=== PATIENT | male | born 1960 | race Caucasian/White ===

== ENCOUNTER 2019-09-18 09:28 | Outpatient (CLI) | payer OTHER, SELFPAY ==
[2019-09-18 09:51] LABS: Basophils Absolute Auto 0.1 K/mm3 (0.0-0.1); Basophils Percent Auto 0.7 % (0.2-1.2); Eosinophils Absolute Auto 0.1 K/mm3 (0-0.3); Eosinophils Percent Auto 1.7 % (0-4.4); Hematocrit 44.5 % (42.0-52.0); Immature Granulocyte Absolute 0.03 K/mm3 (0.00-0.031); Immature Granulocyte Percent A 0.4 % (0-0.5); Lymphocytes Absolute Auto 1.91 K/mm3 (0.9-3.2); Lymphocytes Percent Auto 27.4 % (18.3-44.2); Mean Corpuscular HGB Conc 33.7 g/dl (32-36); Mean Corpuscular Hemoglobin 31.7 pg (26-34); Mean Corpuscular Volume 94.1 fl (80-100); Mean Platelet Volume 8.8 fl (7.4-10.4); Monocytes Absolute Auto 0.5 K/mm3 (0.1-0.6); Monocytes Percent Auto 7.6 % (2.6-8.5); Neutrophils Absolute Auto 4.3 K/mm3 (1.3-6.7); Neutrophils Percent Auto 62.2 % (45.5-73.1); Platelet Count Result 254 k/mm3 (150-375); Red Blood Count 4.73 M/mm3 (4.6-6.20); Red Cell Distribution Width 13.5 % (11.5-14.5)
[2019-09-18 10:02] LABS: Hemoglobin A1C 5.7 % (<5.7)
[2019-09-18 10:09] LABS: Alanine Aminotransferase 16 U/L (4-50); Albumin Level 4.5 g/dL (3.5-5.1); Alkaline Phosphatase 94 U/L (38-126); Anion Gap 11.3 mmol/L (7-16); Aspartate Amino Transferase 30 U/L (17-59); Bilirubin,Total 0.6 mg/dL (0.2-1.3); Blood Urea Nitrogen 22 mg/dL (9-20); Calcium 9.3 mg/dL (8.4-10.2); Carbon Dioxide 30 mmol/L (22-30); Chloride 100 mmol/L (98-107); Cholesterol 194 mg/dL (0-200); Estimated Glomerular Filt Rate > 60; Glucose 113 mg/dL (75-110); HDL Direct 41 mg/dL; Potassium 4.3 mmol/L (3.4-5.0); Sodium 137 mmol/L (137-145); Triglycerides 193 mg/dL (<150)
[2019-09-18 10:18] LABS: Creatinine Urine 231.2 mg/dL
[2019-09-18 10:20] LABS: LDL Cholesterol Direct 108 mg/dL
[2019-09-18 10:23] LABS: MALB Creatinine Ratio 6.4 mg/g (0-30); Microalbumin Urine Random 14.8 mg/L (0-16.7)
== END 2019-09-18 09:29 | disposition home or self-care (01) ==
LOC: ANHLAB 09:30
PROVIDERS: PCP Internal Medicine; Visit Provider Internal Medicine
DX: I10 Essential (primary) hypertension (principal); E78.5 Hyperlipidemia, unspecified; R73.01 Impaired fasting glucose
CPT/HCPCS: 36415; 80053; 80061; 82043; 83036; 85025

== ENCOUNTER 2019-09-29 11:00 | Outpatient (CLI) | payer OTHER, SELFPAY ==
--- NOTE | ~2019-09-29 | XR_ITS ---
EXAMINATION: XR knee RT 3V DATE: 09/29/2019 11:30 INDICATION: Right knee primary osteoarthritis. TECHNIQUE: 3 views of right knee were obtained. COMPARISON: None. FINDINGS: There is varus angulation at the knee. No fracture. There is moderate osteoarthritis of med ial and patellofemoral compartments and mild osteoarthritis of lateral compartment. No knee joint eff usion. IMPRESSION: 1. Moderate right knee osteoarthritis. Reviewed, dictated and finalized at location B.
--- NOTE | ~2019-09-29 | XR_ITS ---
EXAMINATION: XR knee LT 3V DATE: 09/29/2019 11:30 INDICATION: Left knee primary osteoarthritis. TECHNIQUE: 3 views of left knee were obtained. COMPARISON: None. FINDINGS: There is varus angulation at the knee. No fracture. There is moderate osteoarthritis of med ial compartment, severe osteoarthritis of patellofemoral compartment, and mild osteoarthritis of late ral compartment. No knee joint effusion. IMPRESSION: 1. Severe left knee osteoarthritis. Reviewed, dictated and finalized at location B.
--- NOTE | ~2019-09-29 | XR_ITS ---
EXAMINATION: XR hip LT min 2V DATE: 09/29/2019 11:30 INDICATION: Left hip pain. TECHNIQUE: 3 views of left hip were obtained. COMPARISON: None. FINDINGS: Bone alignment is normal. No fracture. There is moderate left hip osteoarthritis. IMPRESSION: 1. Moderate left hip osteoarthritis. Reviewed, dictated and finalized at location B.
== END 2019-09-29 11:01 | disposition home or self-care (01) ==
PROVIDERS: PCP Internal Medicine; Visit Provider Internal Medicine
DX: M17.0 Bilateral primary osteoarthritis of knee (principal); M16.12 Unilateral primary osteoarthritis, left hip
CPT/HCPCS: 73502; 73562

== ENCOUNTER 2020-04-28 17:28 | Outpatient (CLI) | payer OTHER, SELFPAY | END 2020-04-28 17:29 | disposition home or self-care (01) | LOC: ANHCOVIDVC 17:28 | PROVIDERS: PCP Internal Medicine | DX: Z23 Encounter for immunization (principal) | CPT/HCPCS: 0001A; 91300 ==

== ENCOUNTER 2020-05-19 17:40 | Outpatient (CLI) | payer OTHER, SELFPAY | END 2020-05-19 17:41 | disposition home or self-care (01) | LOC: ANHCOVIDVC 17:40 | PROVIDERS: PCP Internal Medicine | DX: Z23 Encounter for immunization (principal) | CPT/HCPCS: 0002A; 91300 ==

== ENCOUNTER 2020-06-25 10:14 | Outpatient (CLI) | payer OTHER, SELFPAY ==
[2020-06-25 11:18] LABS: Anion Gap 2 mmol/L (8-16); Blood Urea Nitrogen 17 mg/dL (9-20); Calcium 9.2 mg/dL (8.4-10.2); Carbon Dioxide 35 mmol/L (22-30); Chloride 104 mmol/L (98-107); Estimated Glomerular Filt Rate > 60; Glucose 92 mg/dL (75-110); Hemoglobin A1C 5.7 % (<5.7); Sodium 141 mmol/L (137-145)
[2020-06-25 11:34] LABS: Creatinine Urine 198.4 mg/dL
[2020-06-25 11:38] LABS: MALB Creatinine Ratio 5.5 mg/g (0-30); Microalbumin Urine Random 10.9 mg/L (0-16.7)
== END 2020-06-25 10:15 | disposition home or self-care (01) ==
PROVIDERS: PCP Internal Medicine; Visit Provider Internal Medicine
DX: R73.01 Impaired fasting glucose (principal)
CPT/HCPCS: 36415; 80048; 82043; 83036

== ENCOUNTER 2020-08-30 07:49 | Outpatient (CLI) | payer OTHER, SELFPAY ==
[2020-08-30 08:14] LABS: Basophils Percent Auto 0.7 % (0.2-1.2); Eosinophils Absolute Auto 0.1 K/mm3 (0-0.3); Eosinophils Percent Auto 1.8 % (0-4.4); Hematocrit 39.7 % (42.0-52.0); Immature Granulocyte Absolute 0.01 K/mm3 (0.00-0.031); Immature Granulocyte Percent A 0.2 % (0-0.5); Lymphocytes Absolute Auto 1.67 K/mm3 (0.9-3.2); Lymphocytes Percent Auto 29.3 % (18.3-44.2); Mean Corpuscular HGB Conc 32.7 g/dl (32-36); Mean Corpuscular Hemoglobin 31.7 pg (26-34); Mean Corpuscular Volume 96.8 fl (80-100); Mean Platelet Volume 8.7 fl (7.4-10.4); Monocytes Absolute Auto 0.6 K/mm3 (0.1-0.6); Monocytes Percent Auto 9.8 % (2.6-8.5); Neutrophils Absolute Auto 3.3 K/mm3 (1.3-6.7); Neutrophils Percent Auto 58.2 % (45.5-73.1); Platelet Count Result 204 k/mm3 (150-375); Red Cell Distribution Width 13.8 % (11.5-14.5); White Blood Count 5.7 K/mm3 (4.5-10.0)
[2020-08-30 08:23] LABS: Cholesterol 158 mg/dL (0-200); HDL Direct 46 mg/dL; Triglycerides 132 mg/dL (<150)
[2020-08-30 08:34] LABS: LDL Cholesterol Direct 73 mg/dL
[2020-08-30 08:54] LABS: Prostate Specific Antigen 0.9 ng/mL (< OR = 4.0)
[2020-08-30 09:50] LABS: Vitamin D 25 Hydroxy 45.8 ng/mL
== END 2020-08-30 07:50 | disposition home or self-care (01) ==
LOC: ANHLAB 07:53
PROVIDERS: PCP Internal Medicine; Visit Provider Internal Medicine
DX: E78.2 Mixed hyperlipidemia (principal); I10 Essential (primary) hypertension; E55.9 Vitamin D deficiency, unspecified; Z12.5 Encounter for screening for malignant neoplasm of prostate
CPT/HCPCS: 36415; 80061; 82306; 84153; 84443; 85025; G0103

== ENCOUNTER 2021-02-02 02:11 | Day surgery (SDC) | payer OTHER, SELFPAY ==
[2021-01-25 15:09] VITALS: BMI 28.9
[2021-02-02 10:00] VITALS: BP 155/80; PULSE 70; RESP 20; TEMP 36.2; O2SAT 98
--- NOTE | 2021-02-02 10:04 | WPDANESEPPF ---
Anes - Initial Pre Proc Eval Procedure: Operation Date: 02/02/21 11:00 Proposed Procedures p Screening Colonoscopy - Giovanni Gillette MD Date/Time: 02/02/21 10:04 Surgeon: Giovanni Gillette MD Pre Op Diagnosis: neoplasm screening Patient Data Age: 60 Gender: M Height: 1.91 m Weight: 105.2 kg Last Vital Signs Temp 36.2 C L 02/02/21 10:00 Pulse 70 02/02/21 10:00 Resp 20 02/02/21 10:00 BP 155/80 H 02/02/21 10:00 Pulse Ox 98 02/02/21 10:00 Allergies Allergy/AdvReac Type Severity Reaction Status Date / Time No Known Allergies Allergy Unknown Verified 02/02/21 09:57 Home Medications Medication Instructions Recorded Confirmed Type coenzyme Q10 100 mg capsule 100 mg PO DAILY 01/26/19 01/25/21 History multivitamin 1 tablet PO DAILY 01/26/19 01/25/21 History hydrochlorothiazide 12.5 mg tablet 12.5 mg PO DAILY #90 tablet 08/29/20 01/25/21 Rx atorvastatin 40 mg PO DAILY 01/25/21 01/25/21 History cetirizine [Zyrtec] 5 mg PO DAILY PRN 01/25/21 01/25/21 History losartan 100 mg PO DAILY 01/25/21 01/25/21 History Patient hx anesthesia problems: none Family hx anesthesia problems: none Results Review: All pre-operative results and documents have been reviewed as part of the pre-operative evaluation. [facility]LY [facility] Past Medical History Medical History (Updated 01/10/21 @ 16:46 by Ranulfo Samaniego MD) Alcohol use Benign essential hypertension Encounter for screening colonoscopy Hyperlipidemia Hypertension IFG (impaired fasting glucose) Osteoarthritis of left knee Primary osteoarthritis of left hip Primary osteoarthritis, unspecified site Varicose veins of both lower extremities Surgical History Surgical History History of vascular surgery Vein Surgery for Circulation Issues - Urbano Legs Family History Family History Mother Hypertension Family history of diabetes mellitus in first degree relative Sibling Family history of malignant neoplasm of breast in first degree relative Family history of malignant neoplasm Father Hypertension Social History Social History Smoking status: Never smoker Alcohol intake: current Drinks per week: 12 Living arrangements: with family Spiritual care concerns: No Anes - Eval Final PreProcedure Day of Procedure 02/02/21 10:04 Patient weight: overweight Heart: regular rate and rhythm Lungs: clear to auscultation and normal air movement Airway: Mallampati scale class III Neurological: alert and oriented Last oral intake: >/= 8 hours ASA classification: III Emergent: no Anesthetic plan: proceed Anesthesia type and monitoring: general GIVS and standard monitoring Results Review: All pre-operative results and documents have been reviewed as part of the pre-operative evaluation. Informed Consent: The patient's anesthetic plan and its attendant risks and benefits were discussed with the patient/family/POA. Questions were solicited and answers provided to the satisfaction of the patient/family/POA.
[2021-02-02] MEDS: LACTATED RINGERS 1,000 ML 150 ML IV CONT (10:08)
--- NOTE | 2021-02-02 10:49 | PM.HPGS ---
History of Present Illness History of Present Illness Consent: Risks, benefits, and alternatives have been discussed and questions answered. Patient agrees to proceed with procedure. Chief complaint: neoplasm screening Narrative: Hansel Wright is a 60 year old male Referred for colon cancer screening. He had a polyp removed 6 years ago Review of Systems Review of Systems: All systems reviewed & are unremarkable except as noted in HPI and below PMFSH Past Medical History Medical History Alcohol use Benign essential hypertension Encounter for screening colonoscopy Hyperlipidemia Hypertension IFG (impaired fasting glucose) Osteoarthritis of left knee Primary osteoarthritis of left hip Primary osteoarthritis, unspecified site Varicose veins of both lower extremities Surgical History Surgical History History of vascular surgery Vein Surgery for Circulation Issues - Urbano Legs Family History Family History Mother Hypertension Family history of diabetes mellitus in first degree relative Sibling Family history of malignant neoplasm of breast in first degree relative Family history of malignant neoplasm Father Hypertension Social History Social History Smoking status: Never smoker Alcohol intake: current Drinks per week: 12 Living arrangements: with family Spiritual care concerns: No Meds Home Medications and Allergies Home Medications Medication Instructions Recorded Confirmed Type coenzyme Q10 100 mg capsule 100 mg PO DAILY 01/26/19 01/25/21 History multivitamin 1 tablet PO DAILY 01/26/19 01/25/21 History hydrochlorothiazide 12.5 mg tablet 12.5 mg PO DAILY #90 tablet 08/29/20 01/25/21 Rx atorvastatin 40 mg PO DAILY 01/25/21 01/25/21 History cetirizine [Zyrtec] 5 mg PO DAILY PRN 01/25/21 01/25/21 History losartan 100 mg PO DAILY 01/25/21 01/25/21 History Allergies Allergy/AdvReac Type Severity Reaction Status Date / Time No Known Allergies Allergy Unknown Verified 02/02/21 09:57 Vital Signs Vital Signs - 24 hr 02/02/21 10:00 Temperature 36.2 C L Pulse Rate 70 Respiratory Rate 20 Blood Pressure 155/80 H Pulse Oximetry 98 Exam Const: General: alert Orientation/consciousness: patient oriented x3 Resp: Auscultation: clear to auscultation bilaterally Cardio: Rhythm: regular rhythm GI: GI Palp: Yes Soft to palpation and No Tenderness to palpation present (GI) Neuro: General: patient oriented x3 Assessment and Plan Assessment and plan (1) Colon cancer screening: Code(s): Z12.11 - Encounter for screening for malignant neoplasm of colon Status: Acute Assessment and Plan: Colonoscopy with possible biopsy or polypectomy or cautery or injection of substances.
[2021-02-02] MEDS: SIMETHICONE ORAL SUSPENSION 20 MG/0.3 ML 30 ML BOTTLE 0.6 ML IRRIGATION (11:10)
[2021-02-02 11:21] VITALS: BP 115/74; PULSE 73; RESP 20; O2SAT 97
[2021-02-02 11:31] VITALS: BP 128/69; PULSE 66; RESP 20; O2SAT 99
[2021-02-02 11:39] VITALS: BP 134/70; PULSE 65; RESP 20; O2SAT 98
== END 2021-02-02 11:52 | disposition home or self-care (01) ==
PROVIDERS: PCP Internal Medicine; Visit Provider Internal Medicine Gastroenterology
PROC: 0DJD8ZZ Inspection of Lower Intestinal Tract, Via Natural or Artificial Opening Endoscopic (ICD-10-PCS; CPT 45378; principal; 2021-02-02 11:00)
DX: Z12.11 Encounter for screening for malignant neoplasm of colon (principal); D12.0 Benign neoplasm of cecum; I10 Essential (primary) hypertension; E78.5 Hyperlipidemia, unspecified; M19.90 Unspecified osteoarthritis, unspecified site
CPT/HCPCS: 45380; 88305; J2001; J2704; J7120

== ENCOUNTER 2021-10-09 16:07 | Outpatient (CLI) | payer BC, SELFPAY ==
--- NOTE | ~2021-10-09 | CT_ITS ---
EXAMINATION: CT LE LT wo con DATE: 10/09/2021 16:33 INDICATION: Unilateral primary osteoarthritis of the left knee. Preoperative planning. TECHNIQUE: High resolution computed tomography (CT) of the left lower limb from the hip through the a nkle was performed without intravenous contrast. Portion of the right lower limb or also visualized. Additional sagittal and coronal reconstructions were performed. Automated exposure control and iterat hema reconstruction technique were employed. The dose-length product was 1920.52 mGy-cm. COMPARISON: None FINDINGS: Bone alignment is normal. No fracture. Polyarticular osteoarthritis in the bilateral lower limbs. Thi s is severe at the medial compartment of the left knee and moderate to severe at the medial compartme nt of the right knee. Mild to moderate osteoarthritis at the patellofemoral compartments of both knee s and at the bilateral hips, moderate severity at the bilateral sacroiliac joints and mild at the malia ateral ankle and subtalar joints. Small bilateral knee joint effusions. No effusions at the left hip were bilateral ankles. Soft tissues including the visualized portion of the pelvis are otherwise unre markable. No pathologically enlarged left inguinal or pelvic lymphadenopathy. IMPRESSION: 1. Medial compartment predominant tricompartmental osteoarthritis at the bilateral knees, severe on t he left and moderate to severe on the right. Reviewed, dictated and finalized at location A. IMPRESSION: 1. Medial compartment predominant tricompartmental osteoarthritis at the bilate ral knees, severe on the left and moderate to severe on the right.
== END 2021-10-09 16:08 | disposition home or self-care (01) ==
LOC: ANHIMG 16:11
PROVIDERS: PCP Internal Medicine; Visit Provider Orthopaedic Surgery
DX: M17.12 Unilateral primary osteoarthritis, left knee (principal)
CPT/HCPCS: 73700

== ENCOUNTER 2021-10-20 08:19 | Outpatient (CLI) | payer BC, SELFPAY ==
[2021-10-20 09:18] LABS: Basophils Percent Auto 0.8 % (0.2-1.2); Eosinophils Absolute Auto 0.1 K/mm3 (0-0.3); Eosinophils Percent Auto 1.3 % (0-4.4); Hematocrit 41.8 % (42.0-52.0); Hemoglobin 13.8 g/dL (14.0-18.0); Immature Granulocyte Absolute 0.01 K/mm3 (0.00-0.031); Immature Granulocyte Percent A 0.2 % (0-0.5); Lymphocytes Absolute Auto 1.34 K/mm3 (0.9-3.2); Lymphocytes Percent Auto 25.6 % (18.3-44.2); Mean Corpuscular Hemoglobin 32.1 pg (26-34); Mean Corpuscular Volume 97.2 fl (80-100); Mean Platelet Volume 8.9 fl (7.4-10.4); Monocytes Absolute Auto 0.4 K/mm3 (0.1-0.6); Monocytes Percent Auto 8.2 % (2.6-8.5); Neutrophils Absolute Auto 3.4 K/mm3 (1.3-6.7); Neutrophils Percent Auto 63.9 % (45.5-73.1); Platelet Count Result 245 k/mm3 (150-375); Red Cell Distribution Width 13.6 % (11.5-14.5); White Blood Count 5.2 K/mm3 (4.5-10.0)
[2021-10-20 09:23] LABS: Albumin Level 4.4 g/dL (3.5-5.1)
[2021-10-20 09:28] LABS: Urine Cotinine NEGATIVE
[2021-10-20 09:28] LABS: Alanine Aminotransferase 15 U/L (6-50); Albumin Level 4.5 g/dL (3.5-5.1); Alkaline Phosphatase 86 U/L (38-126); Anion Gap 9 mmol/L (8-16); Aspartate Amino Transferase 30 U/L (17-59); Bilirubin,Total 0.6 mg/dL (0.2-1.3); Blood Urea Nitrogen 16 mg/dL (9-20); Calcium 8.7 mg/dL (8.4-10.2); Carbon Dioxide 32 mmol/L (22-30); Chloride 102 mmol/L (98-107); Cholesterol 158 mg/dL (0-200); Estimated Glomerular Filt Rate > 60; Glucose 111 mg/dL (65-110); HDL Direct 46 mg/dL; Hemoglobin A1C 5.5 % (<5.7); Potassium 4.1 mmol/L (3.4-5.0); Sodium 143 mmol/L (137-145); Triglycerides 62 mg/dL (<150)
[2021-10-20 09:39] LABS: LDL Cholesterol Direct 80 mg/dL
[2021-10-20 09:55] LABS: Vitamin D 25 Hydroxy 40.9 ng/mL
[2021-10-20 13:55] LABS: Prostate Specific Antigen 0.9 ng/mL (< OR = 4.0)
== END 2021-10-20 08:20 | disposition home or self-care (01) ==
LOC: ANHLAB 08:21
PROVIDERS: PCP Internal Medicine; Visit Provider Internal Medicine
DX: Z12.5 Encounter for screening for malignant neoplasm of prostate (principal); M16.12 Unilateral primary osteoarthritis, left hip; I10 Essential (primary) hypertension; E78.2 Mixed hyperlipidemia; E55.9 Vitamin D deficiency, unspecified
CPT/HCPCS: 36415; 80053; 80061; 80307; 82040; 82306; 83036; 84153; 84443; 85025; G0103

== ENCOUNTER 2021-10-20 08:21 | Outpatient (CLI) | payer BC, SELFPAY ==
--- NOTE | 2021-10-20 | ECG_ITS ---
Measurements Intervals [place] Rate: 68 P: 35 [place]: 171 QRS: 36 QRSD: 110 T: 37 QT: 419 QTc: 446 Interpretive Statements SINUS RHYTHM INCOMPLETE RIGHT BUNDLE BRANCH BLOCK MINIMAL Q WAVES- INFERIOR LEADS BASELINE ARTIFACT- I, II, AVR, AVL, AVF, V1 BORDERLINE ECG NO PREVIOUS ECG AVAILABLE FOR COMPARISON Electronically Signed On 10-20-2021 9:37:39 CDT by Hair Buckley D.O.
== END 2021-10-20 08:22 | disposition home or self-care (01) ==
LOC: ANHLAB 08:23
PROVIDERS: PCP Internal Medicine; Visit Provider Orthopaedic Surgery
DX: Z01.818 Encounter for other preprocedural examination (principal); M17.12 Unilateral primary osteoarthritis, left knee; E78.9 Disorder of lipoprotein metabolism, unspecified; I10 Essential (primary) hypertension
CPT/HCPCS: 93005

== ENCOUNTER 2021-11-17 11:43 | Outpatient (CLI) | payer BC, SELFPAY | END 2021-11-17 11:44 | disposition home or self-care (01) | LOC: ANHSURGERY 11:51 | PROVIDERS: PCP Internal Medicine; Visit Provider Orthopaedic Surgery | DX: Z01.818 Encounter for other preprocedural examination (principal); M17.12 Unilateral primary osteoarthritis, left knee | CPT/HCPCS: 87081 ==

== ENCOUNTER 2021-12-11 01:03 | Day surgery (SDC) | payer BC, SELFPAY ==
[2021-11-17 12:05] VITALS: BP 150/84; PULSE 70; RESP 16; TEMP 37; O2SAT 99; BMI 29.9
--- NOTE | 2021-11-17 12:18 | PC.NURSE ---
Report to the Outpatient Waiting Room, entrance under the green pavilion located off [facility], at time __10:00AM on date ___12/11/21____. OR Time: __12:00PM . Time changes happen often and if your time is changed the preop area will call you the afternoon before. - You and your visitor will be asked to self-screen and do not enter if you have any COVID symptoms. - Only one visitor and NO children visitors are allowed at this time. - The patient visitor is requested to leave or wait in car when not with patient due to restrictions. - A mask is required within the hospital. Patients may have clear liquids (water, carbonated beverages, clear teas, apple juice) until 3 hours prior to surgery with a maximum of 20 ounces. - No food from midnight until time of surgey Take the following medications with a SIP of water the morning of surgery: __AMLODIPINE Medications to discontinue per physician ____HOLD ALL VITAMINS/SUPPLEMENTS, ASPIRIN & NSAIDS(IBUPROFEN) X [address] SMALL Date to take last dose___12/04/21 Please no make-up, nail kinyarwanda, hairspray, perfume, deodorant, or body powder the day of surgery. No jewelry (including any body piercings) or valuables the day of surgery, leave them at home. Please take a shower or bath the night before, or the morning of, surgery with an antibacterial soap. Wear comfortable, loose fitting clothing. Children are encouraged to wear pajamas. - Jewelry must be removed prior to entering the operating room. Rings and piercings that are not removed may be cut off. - The hospital will not accept responsibility for valuables. - Please leave all valuables, including medications, at home the day of surgery. If you are going home after surgery, a licensed party bus driver must drive you home. - NO public transportation without another adult. - We recommend that an adult stay with you for 24 hours following discharge. - We also recommend that you do not drive, make important decision, drink alcoholic beverages, or take any drugs that were not prescribed by your health care provider for at least 24 hours after your discharge time. Follow any additional instructions given to you from your surgeon. If you or anyone in your household have experienced Covid symptoms in the past week, please notify your surgeon or the nurse liaison at the phone number below for possible testing. Telephone instructions given to ___patient and asked if any additional questions and then verbalized understanding. Patient advised to call surgeon office or pre surgery nurse liaison [phone] if any additional questions.
--- NOTE | 2021-12-11 09:36 | WPDANESEPPF ---
Anes - Initial Pre Proc Eval Procedure: Operation Date: 12/11/21 12:00 Proposed Procedures p Left Custom Total Knee Arthroplasty - Ranulfo Samaniego MD Date/Time: 12/11/21 09:36 Surgeon: Ranulfo Samaniego MD Pre Op Diagnosis: primary oa left knee Patient Data Age: 61 Gender: M Height: 1.91 m Weight: 108.8 kg Last Vital Signs Temp 37.0 C 11/17/21 12:05 Pulse 70 11/17/21 12:05 Resp 16 11/17/21 12:05 BP 150/84 H 11/17/21 12:05 Pulse Ox 99 11/17/21 12:05 O2 Del Method Room Air 11/17/21 12:05 Allergies Allergy/AdvReac Type Severity Reaction Status Date / Time No Known Allergies Allergy Unknown Verified 12/11/21 10:48 Home Medications Medication Instructions Recorded Confirmed Type coenzyme Q10 100 mg capsule (Co 100 mg PO DAILY 01/26/19 12/11/21 History Q-10) multivitamin 1 tablet PO DAILY 01/26/19 12/11/21 History atorvastatin 40 mg tablet 40 mg PO DAILY #90 tabs 08/18/21 12/11/21 Rx hydrochlorothiazide 12.5 mg tablet 12.5 mg PO DAILY #90 tabs 08/18/21 12/11/21 Rx amlodipine 2.5 mg tablet 2.5 mg PO DAILY #30 tabs 10/10/21 12/11/21 Rx losartan 100 mg tablet 100 mg PO DAILY #90 tabs 10/10/21 12/11/21 Rx aspirin 81 mg chewable tablet 81 mg PO DAILY 11/17/21 12/11/21 History cetirizine 10 mg tablet (Zyrtec) 10 mg PO DAILY 11/17/21 12/11/21 History glucosamine sulf dipot 2 cap PO DAILY 11/17/21 12/11/21 History chlr,msm,chond 550 mg-C 30 mg-rigoberto 1 mg capsule (Glucosamine Chondroitin) ibuprofen 200 mg tablet 400 mg PO Q6H PRN Pain 11/17/21 12/11/21 History Patient hx anesthesia problems: none Family hx anesthesia problems: none Results Review: All pre-operative results and documents have been reviewed as part of the pre-operative evaluation. [facility] Past Medical History Medical History Alcohol use Benign essential hypertension Encounter for screening colonoscopy ETOH abuse Hyperlipidemia Hypertension IFG (impaired fasting glucose) Osteoarthritis of left knee Primary osteoarthritis of left hip Primary osteoarthritis, unspecified site Varicose veins of both lower extremities Surgical History Surgical History History of vascular surgery Vein Surgery for Circulation Issues - Urbano Legs Family History Family History Mother Hypertension Family history of diabetes mellitus in first degree relative Sibling Family history of malignant neoplasm of breast in first degree relative Family history of malignant neoplasm Father Hypertension Social History Social History Smoking packs per day: 1 Smoking cigarettes per day: 20.0 Years smoked: 20 Smoking pack-years: 20.00 Smoking status: Former smoker Tobacco type: cigarettes Smoking end date: 08/19/99 Alcohol intake: current Drinks per week: 15 Substance use: never Living arrangements: with family Additional living arrangements comments: Spiritual care concerns: No Anes - Eval Final PreProcedure Day of Procedure 12/11/21 09:36 Patient weight: overweight Heart: regular rate and rhythm Lungs: clear to auscultation and normal air movement Airway: Mallampati scale class III Neurological: alert and oriented Last oral intake: >/= 8 hours ASA classification: III Emergent: no Anesthetic plan: proceed Anesthesia type and monitoring: general LMA and standard monitoring Results Review: All pre-operative results and documents have been reviewed as part of the pre-operative evaluation. Informed Consent: The patient's anesthetic plan and its attendant risks and benefits were discussed with the patient/family/POA. Questions were solicited and answers provided to the satisfaction of the patient/family/POA.
[2021-12-11 10:32] VITALS: BP 148/71; PULSE 78; RESP 18; TEMP 36.5; O2SAT 95
--- NOTE | 2021-12-11 10:56 | WPDANESPNB ---
Anes - Peripheral Nerve Block Date/Time: 12/11/21 10:56 I have discussed with the patient/family/POA the placement of a peripheral nerve block for post-operative pain management, including associated risks, benefits, complications, and side effects. Alternative methods of post-operative analgesia were detailed. Questions were solicited and answers provided to the satisfaction of the patient/family/POA. Time-Out: A pre-procedural Time-Out was completed immediately before starting the procedure and confirmed: Patient Identification, Site, Procedure, Patient Position and the Availability of Requisite Equipment. Clinical Indications: Acute post-operative pain management requested by the operative surgeon. Nerve Block Insertion Note Needle: 22 gauge, stimulating, insulated echogenic needle.
[2021-12-11] MEDS: LACTATED RINGERS 1,000 ML 30 ML IV CONT (10:59)
[2021-12-11] MEDS: TRANEXAMIC ACID 1,000MG/ISO100 1,000 MG/100 ML BAG 200 MG IVPB (11:03)
[2021-12-11] MEDS: ACETAMINOPHEN 500 MG TABLET 1000 MG PO (11:04)
--- NOTE | 2021-12-11 11:40 | WPDHPUPDATE1 ---
History and Physical Update Update Date/Time: 12/11/21 11:40 Right great toe fungal infection with large black callus and mild erythema. Additional small superficial ulcer on the lateral aspect of the IP joint. Patient will need to have the toe condition addressed prior to TKA. Discharge to home.
== END 2021-12-11 11:45 | disposition home or self-care (01) ==
PROVIDERS: PCP Internal Medicine; Visit Provider Orthopaedic Surgery
PROC: (CPT 27447; principal; 2021-12-11 12:00)
DX: M17.12 Unilateral primary osteoarthritis, left knee (principal); L97.519 Non-pressure chronic ulcer of other part of right foot with unspecified severity; B35.1 Tinea unguium; Z53.09 Procedure and treatment not carried out because of other contraindication
CPT/HCPCS: 36415; 86850; 86900; 86901; 87081; 99212; A9270; G0463; J0171; J1885; J2250; J2270; J2795; J3010; J7120

== ENCOUNTER 2021-12-29 09:18 | Outpatient (CLI) | payer BC, SELFPAY ==
[2021-12-29 10:15] LABS: Anion Gap 8 mmol/L (8-16); Blood Urea Nitrogen 18 mg/dL (9-20); Carbon Dioxide 28 mmol/L (22-30); Chloride 103 mmol/L (98-107); Estimated Glomerular Filt Rate > 60; Glucose 96 mg/dL (65-110); Potassium 3.9 mmol/L (3.4-5.0); Sodium 139 mmol/L (137-145)
== END 2021-12-29 09:19 | disposition home or self-care (01) ==
LOC: ANHSURGERY 09:23
PROVIDERS: Anesthesiology; PCP Internal Medicine; Visit Provider Orthopaedic Surgery
DX: Z51.81 Encounter for therapeutic drug level monitoring (principal); M17.12 Unilateral primary osteoarthritis, left knee; Z01.818 Encounter for other preprocedural examination
CPT/HCPCS: 36415; 80048; 86850; 86900; 86901

== ENCOUNTER 2022-01-01 00:48 | Day surgery (SDC) | payer BC, SELFPAY ==
[2021-12-27 15:05] VITALS: BMI 29.5
--- NOTE | 2021-12-27 15:25 | PC.NURSE ---
Addendum entered by Genevieve Santillan RN 12/29/21 07:36: CORRECTION- HOLD ASPIRIN PER DR SMALL. Original Note: Report to the Outpatient Waiting Room, entrance under the green pavilion located off [facility], at time __10:00AM on date __01/01/22 . Planned Procedure Time: ___12:00PM . Time changes happen often and if your time is changed the preop area will call you the afternoon before. - You and your visitor will be asked to self-screen and do not enter if you have any COVID symptoms. - We encourage only one visitor and NO visitors under age 16 are allowed at this time. Your visitor will receive communication by the phone number that is given day of service. - The patient visitor is requested to social distance or may leave the building when not with patient due to restrictions. - A mask is required within the hospital. Patients may have clear liquids (water, carbonated beverages, clear teas, apple juice) until 3 hours prior to surgery with a maximum of 20 ounces. - No food from midnight until time of surgery Take the following medications with a SIP of water the morning of surgery: __AMLODIPINE Medications to discontinue per physician ___HOLD ASPIRIN 7 DAYS PRE-OP PER DR BRANCH- LAST DOSE 12/25/21, HOLD ALL VITAMINS/SUPPLEMENTS 3 DAYS PRE-OP- LAST DOSE 12/28/21 Date to take last dose Please no make-up, nail tajik, hairspray, perfume, deodorant, or body powder the day of surgery. No jewelry (including any body piercings) or valuables the day of surgery, leave them at home. Please take a shower or bath the night before, or the morning of, surgery with an antibacterial soap. Wear comfortable, loose fitting clothing. Children are encouraged to wear pajamas. - Jewelry must be removed prior to entering the operating room. Rings and piercings that are not removed may be cut off. - The hospital will not accept responsibility for valuables. - Please leave all valuables, including medications, at home the day of surgery. If you are going home after surgery, a licensed wrecking car driver must drive you home. - NO public transportation without another adult. - We recommend that an adult stay with you for 24 hours following discharge. - We also recommend that you do not drive, make important decision, drink alcoholic beverages, or take any drugs that were not prescribed by your health care provider for at least 24 hours after your discharge time. Follow any additional instructions given to you from your surgeon. If you or anyone in your household have experienced Covid symptoms in the past week, please notify your surgeon or the nurse liaison at the phone number below for possible testing. Telephone instructions given to _PATIENT and asked if any additional questions and then verbalized understanding. Patient advised to call surgeon office or pre surgery nurse liaison [phone] if any additional questions.
[2022-01-01] VITALS (11 sets, daily range): BP systolic 139–152; BP diastolic 67–90; PULSE 76–102; RESP 12–20; TEMP 36.6–37.1; O2SAT 92–97
--- NOTE | ~2022-01-01 | XR_ITS ---
EXAMINATION: XR knee LT 2V DATE: 01/01/2022 15:29 INDICATION: Postoperative evaluation following left total knee arthroplasty. TECHNIQUE: Anteroposterior and lateral views of the left knee were obtained. COMPARISON: None. FINDINGS: Left total knee arthroplasty with patellar resurfacing appears well seated and in near anatomic align ment. No fractures identified. Expected postoperative subcutaneous and intra-articular gas. IMPRESSION: 1. Left total knee arthroplasty, negative for postoperative purposes. Reviewed, dictated and finalized at location [facility]. [facility] SUPPLIES SALES REPRESENTATIVE
--- NOTE | 2022-01-01 10:59 | WPDANESEPPF ---
Anes - Initial Pre Proc Eval Procedure: Operation Date: 01/01/22 12:00 Proposed Procedures p Left Custom Total Knee Arthroplasty - Ranulfo Samaniego MD Date/Time: 01/01/22 10:59 Surgeon: Ranulfo Samaniego MD Pre Op Diagnosis: primary OA left knee Patient Data Age: 61 Gender: M Height: 1.91 m Weight: 107 kg Allergies Allergy/AdvReac Type Severity Reaction Status Date / Time No Known Allergies Allergy Unknown Verified 01/01/22 10:50 Home Medications Medication Instructions Recorded Confirmed Type coenzyme Q10 100 mg capsule (Co 100 mg PO DAILY 01/26/19 01/01/22 History Q-10) multivitamin 1 tablet PO DAILY 01/26/19 01/01/22 History atorvastatin 40 mg tablet 40 mg PO DAILY #90 tabs 08/18/21 01/01/22 Rx hydrochlorothiazide 12.5 mg tablet 12.5 mg PO DAILY #90 tabs 08/18/21 01/01/22 Rx amlodipine 2.5 mg tablet 2.5 mg PO DAILY #30 tabs 10/10/21 01/01/22 Rx losartan 100 mg tablet 100 mg PO DAILY #90 tabs 10/10/21 01/01/22 Rx aspirin 81 mg chewable tablet 81 mg PO DAILY 11/17/21 01/01/22 History cetirizine 10 mg tablet (Zyrtec) 10 mg PO DAILY 11/17/21 01/01/22 History glucosamine sulf dipot 2 cap PO DAILY 11/17/21 01/01/22 History chlr,msm,chond 550 mg-C 30 mg-rigoberto 1 mg capsule (Glucosamine Chondroitin) ibuprofen 200 mg tablet 400 mg PO Q6H PRN Pain 11/17/21 01/01/22 History Patient hx anesthesia problems: none Family hx anesthesia problems: none Results Review: All pre-operative results and documents have been reviewed as part of the pre-operative evaluation. [facility] Past Medical History Medical History Alcohol use Benign essential hypertension Encounter for screening colonoscopy ETOH abuse Hyperlipidemia Hypertension IFG (impaired fasting glucose) Osteoarthritis of left knee Primary osteoarthritis of left hip Primary osteoarthritis, unspecified site Varicose veins of both lower extremities Surgical History Surgical History History of vascular surgery Vein Surgery for Circulation Issues - Urbano Legs Family History Family History Mother Hypertension Family history of diabetes mellitus in first degree relative Sibling Family history of malignant neoplasm of breast in first degree relative Family history of malignant neoplasm Father Hypertension Social History Social History Smoking packs per day: 1 Smoking cigarettes per day: 20.0 Years smoked: 18 Smoking pack-years: 18.00 Smoking status: Former smoker Tobacco type: cigarettes Smoking end date: 08/18/97 Alcohol intake: current Drinks per week: 14 Substance use: never Lack of Transportation: No Lack of Food: Never True Current Housing: I Have Housing Concerned About Future Housing: No Difficulty Paying Gas/Electric Bills: No Difficulty Paying for Meds: No Currently Unemployed: No Education: High School Diploma/GED Difficulty w/ Childcare or Family Care: No Living arrangements: with family Additional living arrangements comments: Spiritual care concerns: No Anes - Eval Final PreProcedure Day of Procedure 01/01/22 10:59 Patient weight: overweight Heart: regular rate and rhythm Lungs: clear to auscultation Airway: Mallampati scale class II Neurological: alert and oriented Last oral intake: >/= 8 hours ASA classification: III Emergent: no Anesthetic plan: proceed Anesthesia type and monitoring: general LMA and standard monitoring Results Review: All pre-operative results and documents have been reviewed as part of the pre-operative evaluation. Informed Consent: The patient's anesthetic plan and its attendant risks and benefits were discussed with the patient/family/POA. Questions were solicited and answers provided to the satisfa
[2022-01-01] MEDS: ACETAMINOPHEN 500 MG TABLET 1000 MG PO (11:00)
[2022-01-01] MEDS: LACTATED RINGERS 1,000 ML 30 ML IV CONT ×2 (11:32→14:58)
[2022-01-01] MEDS: TRANEXAMIC ACID 1,000MG/ISO100 1,000 MG/100 ML BAG 200 MG IVPB (11:33)
--- NOTE | 2022-01-01 11:41 | WPDANESPNB ---
Anes - Peripheral Nerve Block Date/Time: 01/01/22 11:41 I have discussed with the patient/family/POA the placement of a peripheral nerve block for post-operative pain management, including associated risks, benefits, complications, and side effects. Alternative methods of post-operative analgesia were detailed. Questions were solicited and answers provided to the satisfaction of the patient/family/POA. Time-Out: A pre-procedural Time-Out was completed immediately before starting the procedure and confirmed: Patient Identification, Site, Procedure, Patient Position and the Availability of Requisite Equipment. Clinical Indications: Acute post-operative pain management requested by the operative surgeon. Nerve Block Insertion Note Anes-nerve block: adductor canal Patient position: supine Skin prep: chlorhexidine Needle: 22 gauge, stimulating, insulated echogenic needle. Needle length: 80 mm Technique: ultrasound Injectate: bupivacaine 0.5% with epi 5 mcg/ml (30cc - no epi) Observations: tolerated well Complications: none Procedure start time:: 1201 Procedure end time:: 1204
--- NOTE | 2022-01-01 12:00 | WPDHPUPDATE1 ---
History and Physical Update Update Date/Time: 01/01/22 12:00 History and Physical has been reviewed, including an updated exam of the patient. There are NO changes in the patient's condition. Risks, benefits, and alternatives have been discussed and questions answered. Patient agrees to proceed with procedure.
[2022-01-01] MEDS: ceFAZolin 2 GM/D5W 50 ML 2 GM/50 ML BAG IVPB ×2 (12:12→18:01)
[2022-01-01] MEDS: GENTAMICIN BONE CEMENT REFOBACIN 1 EACH TOPICAL (12:54)
[2022-01-01] MEDS: TRANEXAMIC ACID 1,000 MG/10 ML AMPUL 1000 MG IV PUSH (14:10)
--- NOTE | 2022-01-01 16:37 | W.PM.PROC2 ---
Procedure Note - Detailed Date of Procedure 01/01/22 Pre-op Diagnosis primary OA left knee Post-op Diagnosis Same Procedure Performed Total knee arthroplasty, left. Surgeon Ranulfo Samaniego MD Community Development Planner Sara Arguello PA-C Anesthesia General and Regional (Subsartorial block.) Findings Custom TKA. Satisfactory bone quality. No release required. Description of Procedure Preoperative antibiotics were given. The limb was prepped and draped in the usual sterile fashion with a well-padded tourniquet high on the thigh. The limb was exsanguinated and the tourniquet inflated to 300 mmHg. A longitudinal incision was created just medial to the patella. A trivector approach to the knee was performed. Arthrotomy was taken down through the joint capsule. No significant releases were initially taken. The femur was exposed and the F1 jig was applied. The coring tool was used to remove the cartilage for the F2 jig to sit flush with the bone. The jig was pinned and the distal cut carefully taken. Caliper measurements confirmed appropriate bony resections according to the preoperative templated plan. The F4 cutting jig for the femur was applied, at the standard rotation. The AP and anterior chamfer cuts were taken. The F5 jig was applied and the posterior chamfer cuts were taken. The tibia was prepared using the T1 jig, after removing cartilage for the jig contact points. Proper alignment was checked with the alignment desirae. The tibia was cut using the T1u guide. Gap balancing was performed. Gap measurements were taken and the knee was trialed. Excellent alignment and soft tissue balancing was confirmed. The posterior cruciate ligament was recessed along the proximal tibia. The patella was cut for resurfacing. Three lug holes were drilled. Meniscal remnants were removed. The trial components were assembled. Excellent range of motion and proper soft tissue balancing were confirmed throughout the full range of motion. Patellar tracking was excellent. The knee was copiously irrigated periodically throughout the procedure. The real implants were cemented into position. Excess cement was carefully removed. The wound was closed in layers with interrupted #1 Vicryl suture, 2-0 strata fix suture, 0 strata fix suture, 2-0 strata fix suture. Steri-Strips placed on the skin with the knee flexed. Sterile bulky dressing applied. The patient was brought to the recovery room in stable condition. There were no complications. Physician engineer third assistant, Sara Arguello PA-C, required for surgery; including patient positioning, draping, tissue retraction, maintaining instrument position, cement removal, wound closure, and dressing placement. Implants Conformis Custom total knee arthroplasty. Cemented. Cruciate retaining. 6A insert. 38 mm round patella. Estimated Blood Loss -50.0 Drains No Complications No immediate complications Condition Stable Disposition PACU [facility] Billing Surgery - Charge Forward: Surgery Billing
[2022-01-01] MEDS: SENNA/DOCUSATE SODIUM TABLET 2 TAB PO (18:01)
[2022-01-01] MEDS: SODIUM CHLORIDE 0.9% IV 1,000 ML 125 ML IV CONT (18:01)
[2022-01-01] MEDS: ASPIRIN 81 MG ENTERIC TABLET PO (18:01)
[2022-01-01] MEDS: MELOXICAM 7.5 MG TABLET PO (18:02)
[2022-01-01] MEDS: FAMOTIDINE 20 MG TABLET PO (20:42)
[2022-01-02] MEDS: ceFAZolin 2 GM/D5W 50 ML 2 GM/50 ML BAG IVPB ×2 (00:36→07:28)
[2022-01-02 00:48] LABS: Glucose Point of Care 139 mg/dl (65-105)
[2022-01-02 01:55] VITALS: BP 141/72; PULSE 91; RESP 16; TEMP 37.1; O2SAT 94
[2022-01-02 04:33] VITALS: O2SAT 94
[2022-01-02 05:51] LABS: Anion Gap 7 mmol/L (8-16); Blood Urea Nitrogen 20 mg/dL (9-20); Carbon Dioxide 27 mmol/L (22-30); Chloride 102 mmol/L (98-107); Estimated CRCL calculation 128 ml/min; Estimated Glomerular Filt Rate > 60; Glucose 129 mg/dL (65-110); Sodium 136 mmol/L (137-145)
[2022-01-02 05:56] VITALS: BP 142/70; PULSE 100; RESP 18; TEMP 37.1; O2SAT 96
[2022-01-02 06:11] LABS: Basophils Percent Auto 0.1 % (0.2-1.2); Hematocrit 33.3 % (42.0-52.0); Immature Granulocyte Absolute 0.06 K/mm3 (0.00-0.031); Immature Granulocyte Percent A 0.4 % (0-0.5); Lymphocytes Absolute Auto 0.68 K/mm3 (0.9-3.2); Lymphocytes Percent Auto 4.9 % (18.3-44.2); Mean Corpuscular Hemoglobin 31.7 pg (26-34); Mean Platelet Volume 9.2 fl (7.4-10.4); Monocytes Absolute Auto 0.9 K/mm3 (0.1-0.6); Monocytes Percent Auto 6.8 % (2.6-8.5); Neutrophils Absolute Auto 12.2 K/mm3 (1.3-6.7); Neutrophils Percent Auto 87.8 % (45.5-73.1); Platelet Count Result 235 k/mm3 (150-375); Red Blood Count 3.47 M/mm3 (4.6-6.20); Red Cell Distribution Width 13.5 % (11.5-14.5); White Blood Count 13.9 K/mm3 (4.5-10.0)
[2022-01-02] MEDS: SENNA/DOCUSATE SODIUM TABLET 2 TAB PO (08:38)
[2022-01-02] MEDS: MELOXICAM 7.5 MG TABLET PO (08:38)
[2022-01-02] MEDS: predniSONE 5 MG TABLET PO (08:38)
[2022-01-02] MEDS: LOSARTAN POTASSIUM 100 MG TABLET PO (08:38)
[2022-01-02] MEDS: ASPIRIN 81 MG ENTERIC TABLET PO (08:38)
[2022-01-02] MEDS: ATORVASTATIN 40 MG TABLET PO (08:38)
[2022-01-02] MEDS: amLODIPine BESYLATE 2.5 MG TABLET PO (08:38)
[2022-01-02] MEDS: hydroCHLOROthiazide 12.5 MG CAPSULE PO (08:38)
[2022-01-02] MEDS: FAMOTIDINE 20 MG TABLET PO (09:00)
[2022-01-02] MEDS: polyethylene glycoL 3350 17 GM POWD.PACK PO (09:00)
[2022-01-02 09:56] VITALS: PULSE 85; RESP 18; TEMP 36.6; O2SAT 98
--- NOTE | 2022-01-02 10:37 | PM.DS ---
DS: Admitting Diagnosis Discharge Date 01/02/22 Admitting Diagnosis OA knee Left DS: Discharge Diagnosis Discharge Diagnosis (1) Status post total left knee replacement: Code(s): Z96.652 - Presence of left artificial knee joint Status: Acute Assessment and Plan: Postop day 1: Left total knee arthroplasty. Patient tolerated procedure well. No complications. Pain manageable with pain medication. No numbness or tingling. We had a lengthy discussion regarding postoperative wound care, limitations, expectations, and exercises. Patient shows good understanding. He has had initial physical therapy and is tolerating it well. DVT prophylaxis: 81 mg baby aspirin b.i.d. for 14 days. Pain medication: Percocet. Meloxicam. Prednisone. Patient has followup appointment with Dr. Samaniego in 3 weeks. DS: Summary Hospital Course Reason for hospitalization: Total knee arthroplasty Hospital Course: Patient tolerated procedure well. Has had initial PT/OT. Status at Discharge Functional status at discharge: uses cane/walker Overall status at discharge: patient is progressing back to baseline Time Spent with Patient Time attestation: Total time spent providing and/or coordinating discharge services: Exam Narrative: 61-year-old overweight male. Resting comfortably in chair. Alert and oriented x3. No acute distress. Wearing compression socks bilaterally. Dressing intact with small area of dried bloody drainage on Mepilex. Moderate swelling. No ecchymosis. No erythema. No hematoma. Range of motion limited due to pain. 5-80. Calf nontender. Neurologic status intact. No varicosities. Distal pulses palpable. DS: Data Data Completed and Pending Labs on day of discharge: Labs from last 24 hours 01/02/22 01/02/22 01/02/22 05:35 05:35 00:16 WBC 13.9 H RBC 3.47 L Hgb 11.0 L Hct 33.3 L MCV 96.0 MCH 31.7 MCHC 33.0 RDW 13.5 Plt Count 235 MPV 9.2 Immature Gran % (Auto) 0.4 Neut % (Auto) 87.8 H Lymph % (Auto) 4.9 L Pike % (Auto) 6.8 Eos % (Auto) 0.0 Baso % (Auto) 0.1 L Lymph # (Auto) 0.68 L Pike # (Auto) 0.9 H Eos # (Auto) 0.0 Baso # (Auto) 0.0 Abs Immat Gran (auto) 0.06 H Absolute Neuts (auto) 12.2 H Absolute Nucleated RBC 0.0 Nucleated RBC % 0.0 Sodium 136 L Potassium 4.0 Chloride 102 Carbon Dioxide 27 Anion Gap 7 L BUN 20 Creatinine 0.60 L Estim Creat Clear Calc 128 Estimated GFR > 60 Glucose 129 H POC Capillary Glucose 139 H Calcium 8.0 L Discharge Plan Discharge Patient Disposition: Home, Self-Care Discharge Instructions: see green instruction sheets Stand Alone Forms: General Discharge Instructions Follow-up/Referrals: Sara Arguello PA [Physician Engine Dynamometer Tester] - Discharge Medications: New meloxicam 15 mg tablet 15 mg PO DAILY Qty: 30 0RF Rx Instructions: Cut in half. Take 1/2 in morning and 1/2 at night. Take with food. Stop if stomach upset. prednisone 5 mg tablet 5 mg PO DAILY 21 Days Qty: 21 0RF aspirin 81 mg tablet,delayed release (DR/EC) 81 mg PO BID 14 Days Qty: 28 0RF oxycodone-acetaminophen 5-325 mg tablet 1 - 2 tablet PO Q4-6H MDD 6 PRN (Reason: pain) Qty: 30 0RF Continued amlodipine 2.5 mg tablet 2.5 mg PO DAILY Qty: 30 5RF Rx Instructions: takes in am losartan 100 mg tablet 100 mg PO DAILY Qty: 90 1RF Rx Instructions: TAKES IN AM cetirizine [Zyrtec] 10 mg Tablet 10 mg PO DAILY Glucosamine Chondroitin 550-30-1 mg Capsule 2 cap PO DAILY multivitamin Tablet 1 tablet PO DAILY coenzyme Q10 [Co Q-10] 100 mg capsule 100 mg PO DAILY hydrochlorothiazide 12.5 mg tablet 12.5 mg PO DAILY Qty: 90 1RF Rx Instructions: TAKES IN AM atorvastatin 40 mg tablet 40 mg PO DAILY Qty: 90 1RF Rx Instructions: TAKES IN AM Held aspir
== END 2022-01-02 13:00 | disposition home or self-care (01) ==
LOC: ANHSURGERY 14:07 → ANH3MED 16:26
PROVIDERS: Physician Assistant Surgical; PCP Internal Medicine; Visit Provider Orthopaedic Surgery
PROC: (CPT 27447; principal; 2022-01-01 12:00)
DX: M17.12 Unilateral primary osteoarthritis, left knee (principal); G89.18 Other acute postprocedural pain; I10 Essential (primary) hypertension; E78.5 Hyperlipidemia, unspecified; Z79.82 Long term (current) use of aspirin; Z87.891 Personal history of nicotine dependence
CPT/HCPCS: 27447; 64447; 36415; 73560; 80048; 82948; 85025; 86850; 86900; 86901; 97110; 97161; 97165; 97535; A9270; C1713; C1776; J0131; J0171; J0690; J1100; J1170; J1885; J2250; J2270; J2405; J2704; J2795; J3010; J7030; J7120; J7512

== ENCOUNTER 2022-04-11 15:21 | Outpatient (CLI) | payer BC, SELFPAY ==
[2022-04-11 16:33] LABS: Alanine Aminotransferase 18 U/L (6-50); Albumin Level 4.6 g/dL (3.5-5.1); Alkaline Phosphatase 110 U/L (38-126); Anion Gap 6 mmol/L (8-16); Aspartate Amino Transferase 35 U/L (17-59); Bilirubin,Total 0.6 mg/dL (0.2-1.3); Blood Urea Nitrogen 25 mg/dL (9-20); Calcium 9.3 mg/dL (8.4-10.2); Carbon Dioxide 32 mmol/L (22-30); Chloride 101 mmol/L (98-107); Estimated Glomerular Filt Rate > 60; Glucose 86 mg/dL (65-110); Potassium 4.3 mmol/L (3.4-5.0); Sodium 139 mmol/L (137-145)
== END 2022-04-11 15:22 | disposition home or self-care (01) ==
PROVIDERS: PCP Internal Medicine; Visit Provider Nurse Practitioner
DX: E78.5 Hyperlipidemia, unspecified (principal)
CPT/HCPCS: 36415; 80053

== ENCOUNTER 2022-10-05 07:15 | Outpatient (CLI) | payer BC, SELFPAY ==
[2022-10-05 08:57] LABS: Vitamin D 25 Hydroxy 42.7 ng/mL
[2022-10-05 09:18] LABS: Alanine Aminotransferase 17 U/L (6-50); Albumin Level 4.3 g/dL (3.5-5.1); Alkaline Phosphatase 93 U/L (38-126); Anion Gap 4 mmol/L (8-16); Aspartate Amino Transferase 33 U/L (17-59); Bilirubin,Total 0.6 mg/dL (0.2-1.3); Blood Urea Nitrogen 20 mg/dL (9-20); Calcium 8.9 mg/dL (8.4-10.2); Carbon Dioxide 33 mmol/L (22-30); Chloride 102 mmol/L (98-107); Cholesterol 147 mg/dL (0-200); Estimated Glomerular Filt Rate > 60; Glucose 97 mg/dL (65-110); HDL Direct 35 mg/dL; Potassium 4.2 mmol/L (3.4-5.0); Sodium 139 mmol/L (137-145); Triglycerides 111 mg/dL (<150)
[2022-10-05 09:33] LABS: LDL Cholesterol Direct 84 mg/dL
[2022-10-05 09:47] LABS: Prostate Specific Antigen 0.8 ng/mL (< OR = 4.0)
== END 2022-10-05 07:16 | disposition home or self-care (01) ==
PROVIDERS: PCP Nurse Practitioner; Visit Provider Nurse Practitioner
DX: E78.5 Hyperlipidemia, unspecified (principal); E55.9 Vitamin D deficiency, unspecified; Z12.5 Encounter for screening for malignant neoplasm of prostate
CPT/HCPCS: 36415; 80053; 80061; 82306; 84153; G0103

== ENCOUNTER 2023-10-22 07:29 | Outpatient (CLI) | payer BC, SELFPAY ==
[2023-10-22 08:11] LABS: Alanine Aminotransferase 15 U/L (6-50); Albumin Level 4.2 g/dL (3.5-5.1); Alkaline Phosphatase 74 U/L (38-126); Anion Gap 4 mmol/L (4-12); Aspartate Amino Transferase 30 U/L (17-59); Bilirubin,Total 0.5 mg/dL (0.2-1.3); Blood Urea Nitrogen 22 mg/dL (9-20); Calcium 8.8 mg/dL (8.4-10.2); Carbon Dioxide 33 mmol/L (22-30); Chloride 103 mmol/L (98-107); Cholesterol 158 mg/dL (0-200); Estimated Glomerular Filt Rate > 60; Glucose 114 mg/dL (65-110); HDL Direct 45 mg/dL; Sodium 140 mmol/L (137-145); Triglycerides 119 mg/dL (<150)
[2023-10-22 08:23] LABS: LDL Cholesterol Direct 81 mg/dL
== END 2023-10-22 07:30 | disposition home or self-care (01) ==
LOC: ANHLAB 07:32
PROVIDERS: PCP Nurse Practitioner; Visit Provider Nurse Practitioner
DX: E78.5 Hyperlipidemia, unspecified (principal)
CPT/HCPCS: 36415; 80053; 80061

== ENCOUNTER 2024-06-19 09:14 | Outpatient (CLI) | payer BC, SELFPAY ==
[2024-06-19 10:04] LABS: Hemoglobin 12.9 g/dL (14.0-18.0); Mean Corpuscular HGB Conc 33.1 g/dl (32-36); Mean Corpuscular Hemoglobin 32.1 pg (26-34); Mean Platelet Volume 9.1 fl (7.4-10.4); Platelet Count Result 223 k/mm3 (150-375); Red Blood Count 4.02 M/mm3 (4.6-6.20); Red Cell Distribution Width 13.6 % (11.5-14.5); White Blood Count 4.7 K/mm3 (4.5-10.0)
[2024-06-19 11:22] LABS: Alanine Aminotransferase 16 U/L (6-50); Albumin Level 4.2 g/dL (3.5-5.1); Alkaline Phosphatase 91 U/L (38-126); Anion Gap 6 mmol/L (4-12); Aspartate Amino Transferase 33 U/L (17-59); Bilirubin,Total 0.8 mg/dL (0.2-1.3); Blood Urea Nitrogen 23 mg/dL (9-20); Calcium 8.7 mg/dL (8.4-10.2); Carbon Dioxide 29 mmol/L (22-30); Chloride 104 mmol/L (98-107); Cholesterol 147 mg/dL (0-200); Estimated Glomerular Filt Rate > 60; Glucose 112 mg/dL (65-110); HDL Direct 42 mg/dL; Potassium 4.2 mmol/L (3.4-5.0); Sodium 139 mmol/L (137-145); Triglycerides 103 mg/dL (<150)
[2024-06-19 11:32] LABS: LDL Cholesterol Direct 67 mg/dL
[2024-06-19 11:51] LABS: Prostate Specific Antigen 1.1 ng/mL (< OR = 4.0)
[2024-06-19 12:13] LABS: Hemoglobin A1C 5.8 % (<5.7)
--- OUTSIDE RECORDS SUMMARY | 2024-06-20 11:27 | XMS_ITS | Clinical Summary ---
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 Gender Identity Not on file Sexual Orientation Not on file Plan of Treatment Health Maintenance Due Date Last Done Comments Colorectal Cancer Screening Colonoscopy (10 Years) 1960 Hepatitis C 1976 DTaP, Tdap and Td Vaccines ( 1 - Tdap) 1977 Pneumococcal Vaccine: 50+ Ye ars (1 of 1 - PCV) 2008 Zoster Vaccines (1 of 2) 2008 COVID-19 Vaccine ( - 2023-2 5 season) 2023 RSV Immunization or 60+ Years (1 - 1-dose 75+ series) 2033 Meningococcal B Vaccine Aged Out No l onger eligible based on patient's age to complete this topic Meningococcal Vaccine Aged Out No ezio conchis eligible based on patient's age to complete this topic RSV Immunizations Under 20 Months Aged Out No longer eligible based on patient's age to complete this topic Insurance [facility] Care Teams Defensive Line Coach Relationship Specialty Start Date End Date Kirt Gonzales MD [address] [place] [address] PCP - General INTERNAL MEDICINE 03/07/20
== END 2024-06-19 09:15 | disposition home or self-care (01) ==
LOC: ANHLAB 09:16
PROVIDERS: PCP Nurse Practitioner; Visit Provider Nurse Practitioner
DX: R73.9 Hyperglycemia, unspecified (principal); E78.5 Hyperlipidemia, unspecified; Z12.5 Encounter for screening for malignant neoplasm of prostate; I10 Essential (primary) hypertension
CPT/HCPCS: 36415; 80053; 80061; 83036; 84153; 85027; G0103